=== PATIENT | male | born 1970 | race Caucasian/White ===

== ENCOUNTER 2016-10-26 18:58 | Emergency (ER) | payer OTHER ==
[~2016-10-26 18:58] MED LIST: Sodium Chloride 0.9% 1,000 ML BAG ONE; Sodium Chloride 0.9% 100 ML BAG ONE
[2016-10-26 19:47] LABS: Bilirubin Negative (Negative); Blood, Urine Trace (Negative); Clarity Clear (Clear); Glucose, Urine (Dipstick) Negative (Negative); Leukocyte Negative (Negative); Nitrite Negative (Negative); Protein, Urine (Dipstick) Negative (Neg-Trace); Specific Gravity, Urine 1.025 (1.005-1.030)
[2016-10-26 19:51] LABS: #Basophils 0.1 thou/uL (0.0-0.2); #Eosinphils 0.3 thou/uL (0.0-0.7); #Lymphocytes 1.5 thou/uL (1.20-3.40); #Monocytes 0.6 thou/uL (0.11-0.59); #Neutrophils 4.7 thou/uL (1.40-6.50); %Basophils 1.9 % (0.0-1.0); %Eosinophils 4.3 % (0.0-10.0); %Lymphocytes 20.4 % (21.0-51.0); %Monocytes 7.7 % (0.0-10.0); %Neutrophils 65.8 % (42.0-75.0); Mean Corpuscular HGB CONC 35.2 g/dL (32.0-36.0); Mean Corpuscular Volume 88.1 fl (80.0-94.0); Mean Platelet Volume 7.4 fL (7.4-10.4); Platelet Count 231 thou/uL (130-400); RBC Distribution Width 11.5 % (11.5-14.5); Red Blood Cell (RBC) Count 4.18 mill/uL (4.70-6.10); White Blood Cell (WBC) Count 7.2 thou/uL (4.8-10.8)
[2016-10-26 19:58] LABS: ALT (SGPT) 21 U/L (0-55); AST (SGOT) 21 U/L (5-34); Albumin 4.1 g/dL (3.5-5.0); Alkaline Phosphatase 55 U/L (40-150); Amylase 49 U/L (25-125); Anion Gap 17 mmol/L (10-20); BUN (Urea Nitrogen) 19 mg/dL (8.9-20.6); Bilirubin, Total Less than 0.3 mg/dL (0.2-1.2); Calc. Creatinine Clearance 0 mL/min (70-130); Calcium 9.4 mg/dL (7.8-10.44); Carbon Dioxide 23 mmol/L (22-29); Chloride 104 mmol/L (98-107); Estimated GFR-MDRD 69; Globulin 2.6 g/dL (2.4-3.5); Glucose 111 mg/dL (70-105); Lipase 73 U/L (8-78); Potassium 4.1 mmol/L (3.5-5.1); Protein, Total 6.7 g/dL (6.0-8.3); Sodium 140 mmol/L (136-145)
[2016-10-26 20:00] LABS: Bacteria/HPF Rare-Few HPF (None Seen); Squamous Epithelial 0-3 HPF (0-3); WBC/HPF None Seen HPF (0-3)
--- NOTE | 2016-10-26 20:15 | RAD ---
PORTABLE CHEST 10/26/16 PROVIDED CLINICAL HISTORY: Chest pain. FINDINGS: No evidence for an acute cardiopulmonary process. IMPRESSION: As above. POS: [facility]OL[facility]
[2016-10-26] MEDS ORDERED: Ketorolac Tromethamine 30 MG/ML VIAL ONE (20:38)
[2016-10-26] MEDS ORDERED: Ondansetron HCl/PF 4 MG/2 ML Vial ONE (20:38)
--- NOTE | 2016-10-26 21:11 | ERRECORD ---
[facility] EMERGENCY RECORD HPI ABDOMINAL PAIN (20:21 LLDO) CHIEF COMPLAINT: Patient presents for evaluation of abdominal pain, Patient presents for evaluation of abdominal distention, Patient presents for evaluation of abdominal bloating, Patient presents for evaluation of see triage note. RUQpain for 4 days. worse today. nausea all day. bloating and burping. never had any surgery in [place]. HISTORIAN: History provided by patient. LOCATION MALE: Symptoms are localized, most severe in the right upper quadrant. QUALITY: Pain is dull in nature, described as aching, described as bloating sensation, described as cramping, described as a sensation of fullness, described as BECOMES SHARP WITH MOVEMENT OR PALPATION. SEVERITY: Maximum severity of symptoms moderate, Currently symptoms are moderate. TIME COURSE: Sudden onset of symptoms, Symptoms are worsening, waxes and wanes but never goes away. ASSOCIATED WITH: Associated with loss of appetite, Associated with nausea. RELIEVED BY: Patient's condition relieved by nothing. EXACERBATED BY: Patient's condition exacerbated by food, Patient's condition exacerbated by movement, Patient's condition exacerbated by walking. RISK FACTORS MALE: Testicular torsion risk factors, not applicable for this patient, Abdominal aortic aneurysm risk factors, include age over 40 years, Coronary artery disease risk factors, include hypertension. ROS CONSTITUTIONAL: Historian reports fatigue. (20:27 LLDO) EYES: Negative eye review of systems, Historian denies eye pain, denies eye redness, denies eye discharge. (20:30 LLDO) ENT: Negative ears, nose, throat review of systems, Historian denies otalgia, denies rhinorrhea, denies sinus pain, denies sore throat. (20:30 LLDO) CARDIOVASCULAR: Negative cardiovascular review of systems, Historian denies chest pain, no radiation, Historian denies diaphoresis, denies paroxysmal nocturnal dyspnea, denies syncope. (20:30 LLDO) RESPIRATORY: Negative respiratory review of systems, Historian denies cough, denies shortness of breath, denies sputum. (20:30 LLDO) GI: Historian reports abdominal pain, reports anorexia, reports appetite changes, reports flatulence, denies hematochezia, denies melena, reports nausea, denies stool changes, denies vomiting. (20:27 LLDO) MUSCULOSKELETAL: Negative musculoskeletal review of systems, Historian denies arthralgias, denies fall, denies injury, denies myalgias. (20:30 LLDO) NEUROLOGIC: Negative neurologic review of systems, Historian &a-1R&a+25V*p+0X*[id number]*c202B*c15G*c2P*p-0X&a-25V&a+1R Name: Ed Hernandez : 1970 M46 MedRec: [id number] AcctNum: [id number] Prepared: SunOct 27, 2016 02:06 by Interface Page 1 of 4 pMD [facility] EMERGENCY RECORD denies confusion, denies focal weakness, denies mental status changes, denies sensory changes. (20:30 LLDO) HEMO/LYMPHATIC: Normal hematologic/lymphatic system review, Historian denies abnormal blood clotting, denies gum bleeding, denies petechiae. (20:30 LLDO) ALLERGIC/IMMUNOLOGIC: Normal allergy/immunologic system review, Historian denies eczema, denies environmental allergies, denies food allergies. (20:30 LLDO) PSYCHIATRIC: Negative psychiatric review of systems, Historian denies alcohol abuse, denies anxiety, denies depression, denies drug abuse, denies hallucinations. (20:30 LLDO) NOTES: All systems reviewed, negative except as described above. (20:27 LLDO) PAST MEDICAL HISTORY MEDICAL HISTORY: Notes: PRE HYPERTENSION, HAS NOT FOLLOWED UP WITH A PCP. (19:17 BPHI) MALE SURGICAL HISTORY: LEFT KNEE MENISCUS REPAIR. (19:17 BPHI) PSYCHIATRIC HISTORY: No previous psychiatric history. (19:17 BPHI) SOCIAL HISTORY: Patient denies alcohol use, Patient denies drug use, Patient is a former tobacco user, Tobacco history notes: QUIT 1 MONTH AGO. (19:17 BPHI) NOTES: Nursing records reviewed, Agree with nursing records, Medication list reviewed. (20:30 LLDO) KNOWN ALLERGIES NKDA CURRENT MEDICATIONS (19:33 CJEF) None VITAL SIGNS VITAL SIGNS: BP: 143/89 (Right Arm), Pulse: 82 (Regular), Resp: 18 (Non-Labored), Temp: 98.4 (Tympanic), Pain: 6, O2 sat: 98 on Room Air, Time: 10/26/2016 19:14. (19:14 BPHI) BP: 106/72, Pulse: 67, Resp: 18, Pain: 6, O2 sat: 97 on Room Air, Time: 10/26/2016 20:15. (20:15 CJEF) BP: 120/72, Pulse: 62, Resp: 18, Temp: 97.1 (Tympanic), Pain: 6, O2 sat: 100 on Room Air, Time: 10/26/2016 21:21. (21:21 CJEF) BP: 120/72, Pulse: 62, Resp: 18, Temp: 98.4, Pain: T, O2 sat: 98 on RA, Time: 10/26/2016 21:35. 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 (20:28 LLDO) HEAD: Head exam normal, Head exam included findings of head atraumatic, normocephalic. (20:30 LLDO) EYES: Eye exam normal, Eye exam included findings of eyelids normal to inspection, Pupils equally round and reactive to light, Extraocular muscles intact. (20:30 LLDO) ENT: ENT exam normal, Ear exam normal, Nose exam normal. (20:30 LLDO) NECK: Neck exam normal, Neck exam included findings of normal range of motion, Trachea midline, no meningeal signs, no tenderness. (20:30 LLDO) RESPIRATORY CHEST: Respiratory and chest exam normal, Respiratory exam included findings of no respiratory distress, Breath sounds clear, Chest exam included findings of chest movement symmetrical, Chest expansion equal. (20:30 LLDO) CARDIOVASCULAR: Cardiovascular assessment normal, Cardiovascular exam included findings of heart rate regular rate and rhythm, Heart sounds normal. (20:30 LLDO) ABDOMEN MALE: Abdominal exam included findings of abdomen tender, to the right upper quadrant, severe intensity, Bowel sounds, hyperactive, Liver normal, Spleen normal, Distension present, no mass, no pulsatile masses, McBurney's point non-tender, no peritoneal signs, Trejo's sign present. (20:28 LLDO) BACK: Back exam normal, Back exam included findings of normal inspection, range of motion normal. (20:30 LLDO) UPPER EXTREMITY: Upper extremity exam normal, Upper extremity exam included findings of inspection normal, Range of motion normal. (20:30 LLDO) LOWER EXTREMITY: Lower extremity exam normal, Lower extremity exam included findings of inspection normal, Range of motion normal. (20:30 LLDO) NEURO: Neuro exam normal, Neuro exam findings include patient oriented to person, place and time, Speech normal, [place] coma scale 15. (20:30 LLDO) SKIN: Skin exam normal, Skin exam included findings of skin warm, dry, and normal in color, no rash. (20:30 LLDO) PSYCHIATRIC: Psychiatric exam normal, Psychiatric exam included findings of patient oriented to person place and time, Normal affect, Judgment normal. (20:30 LLDO) MEDICATION ADMINISTRATION SUMMARY Drug Name: Ancef intravenous, Dose Ordered: 2 g, Route: IV Piggy Back, Status: Given, Time: 21:12 10/26/2016, Drug Name: *sodium chloride 0.9 % intravenous, Dose Ordered: 1 L, Route: IV Fluid Infusion, Status: Given, Time: 21:12 10/26/2016, Drug Name: Zofran intravenous, Dose Ordered: 8 mg, Route: IV Push, Status: Given, Time: 20:46 10/26/2016, Drug Name: Toradol injection, Dose Ordered: 30 mg, Route: IV Push, &a-1R&a+25V*p+0X*u0031J*c202B*c15G*c2P*p-0X&a-25V&a+1R Name: Ed Hernandez : 1970 M46 MedRec: [id number] AcctNum: [id number] Prepared: SunOct 27, 2016 02:06 by Interface Page 3 of 4 pMD [facility] EMERGENCY RECORD Status: Given, Time: 20:45 10/26/2016, Drug Name: *sodium chloride 0.9 % intravenous, Dose Ordered: 1 L, Route: IV Fluid Infusion, Status: Given, Time: 20:45 10/26/2016, *Additional information available in notes, Detailed record available in Medication Service section. DOCTOR NOTES TEXT: accepted by dr. pereira for [facility]. (20:57 LLDO) sending to [facility] for GB US and possible surgical consult. (20:59 LLDO) PROBLEM LIST No recorded problems DIAGNOSIS (20:59 LLDO) FINAL: PRIMARY: ACUTE CHOLECYSTITIS. PRESCRIPTION No recorded prescriptions DISPOSITION PATIENT: Disposition Type: Transfer, Disposition: Transfer to [facility]. (20:59 LLDO) Patient left the department. (21:36 CJEF) Chapa: CAROLINE=ADDISON Vazquez, Matt BPHI=ADDISON Martínez, Janet CJEF=ADDISON Morales, Shannon LLDO=MD Rommel, Talon &a-1R&a+25V*p+0X*[id number]*c202B*c15G*c2P*p-0X&a-25V&a+1R Name: Ed Hernandez : 1970 M46 MedRec: [id number] AcctNum: [id number] Prepared: SunOct 27, 2016 02:06 by Interface Page 4 of 4 pMD MTDD
[2016-10-26] MEDS ORDERED: ceFAZolin Sodium 1 GM VIAL ONE (21:12)
--- NOTE | 2016-10-26 21:17 | PICIS ---
[facility] EMERGENCY RECORD COMMUNICATIONS (20:56 AWAT) COMMUNICATIONS: Notes: DR PEREIRA AT [facility] ER ACCEPTS PT FOR TRANSFER AT THIS TIME. TRIAGE (19:15 BPHI) TRIAGE NOTES: C/O RUQ PAIN THAT HAS BEEN GOING ON FOR 4 DAYS. BECOMING WORSE OVER THE PAST 2 DAYS. DESCRIBES SHARP "LIK A KNIFE" DENIES ANY KNOWN TRIGGERS. (19:15 BPHI) PATIENT: NAME: Ed Hernandez, AGE: 46, GENDER: male, : Sun1970, TIME OF GREET: SunOct 26, 2016 18:59, PREFERRED LANGUAGE: Estonian, ETHNICITY: Not or , ECODE BILLING MAP: [facility], SSN: [id number], Zip Code: [address], KG WEIGHT: 94.35, PHONE: , , , PERSON ID: [id number], PCP: NONE. (19:15 BPHI) COMPLAINT: PAIN/STOMACH AREA. (19:15 BPHI) ADMISSION: URGENCY: 3 Urgent, ADMISSION SOURCE: Home, TRANSPORT: CAR, BED: ED -04. (19:15 BPHI) ASSESSMENT: Assessment: RIGHT UPPER QUADRANT PAIN, Symptoms began 4 DAYS AGO, Symptoms began 4 days ago. (19:16 BPHI) PAIN: Patient complains of pain described as, on a scale 0-10 patient rates pain as 6, Location RUQ, Pain is intermittent, Onset was 4 DAYS AGO. (19:16 BPHI) SIRS SCORING: Heart Rate 55-109 (0), Temp range 96.8-101.1 (0), respiratory rate 12-24 (0), Mental Status altered: no (0). (19:16 BPHI) TRIAGE SCREENING: Patient denies suicidal ideation, Patient denies presence of domestic violence. (19:16 BPHI) PROVIDERS: TRIAGE NURSE: Janet Martínez RN. (19:15 BPHI) VITAL SIGNS: BP 143/89, (Right Arm), Pulse 82, (Regular), Resp 18, (Non-Labored), Temp 98.4, (Tympanic), Pain 6, O2 Sat 98, on Room Air, Time 10/26/2016 19:14. (19:14 BPHI) KNOWN ALLERGIES NKDA CURRENT MEDICATIONS (19:33 CJEF) None VITAL SIGNS VITAL SIGNS: BP: 143/89 (Right Arm), Pulse: 82 (Regular), Resp: 18 (Non-Labored), Temp: 98.4 (Tympanic), Pain: 6, O2 sat: 98 on Room Air, Time: 10/26/2016 19:14. (19:14 BPHI) BP: 106/72, Pulse: 67, Resp: 18, Pain: 6, O2 sat: 97 on Room Air, Time: 10/26/2016 20:15. (20:15 CJEF) BP: 120/72, Pulse: 62, Resp: 18, Temp: 97.1 (Tympanic), Pain: 6, O2 sat: 100 on Room Air, Time: 10/26/2016 21:21. (21:21 CJEF) BP: 120/72, Pulse: 62, Resp: 18, Temp: 98.4, Pain: T, O2 sat: 98 on RA, Time: 10/26/2016 21:35. (21:35 AWAT) &a-1R&a+25V*p+0X*z1010K*c202B*c15G*c2P*p-0X&a-25V&a+1R Name: Ed Hernandez : 1970 M46 MedRec: [id number] AcctNum: [id number] Prepared: SunOct 27, 2016 02:06 by Interface Page 1 of 13 pMD [facility] EMERGENCY RECORD NURSING ASSESSMENT: ABDOMEN (19:18 BPHI) CONSTITUTIONAL: Patient arrives ambulatory, Gait steady, History obtained from patient, Patient appears, uncomfortable, Patient cooperative, Patient alert, Oriented to person, place and time, Skin warm, Skin dry, Skin normal in color, Mucous membranes pink, Mucous membranes moist, Patient is well-groomed, Patient complains of RIGHT UPPER QUADRANT PAIN, C/O RUQ PAIN THAT HAS BEEN GOING ON FOR 4 DAYS. BECOMING WORSE OVER THE PAST 2 DAYS. DESCRIBES SHARP "LIKE A KNIFE" DENIES ANY KNOWN TRIGGERS., PAIN IS INTERMITTENT. PAIN: sharp pain, to the right upper quadrant, Onset of pain 4 DAYS AGO, on a scale 0-10 patient rates pain as 6. NONVERBAL PAIN: Non-Verbal complaints present with movement (1), Facial grimaces present with movement (1). ABDOMEN: Abdomen assessment findings include abdomen symmetrical, Abdomen soft, tender, to the right upper quadrant, Notes: DENIES ANY ABNORMAL BOWEL MOVEMENTS. GENITOURINARY MALE: no associated urinary complaints. NURSING ASSESSMENT: FALL RISK (19:33 CJEF) FALL RISK: Total score 0, No risk for fall. HENDRICH II FALL RISK: Able to rise in a single movement; no loss of balance with steps(0), Total score 0, Score less than 5. Patient not high risk for falls. NURSING ASSESSMENT: SKIN (19:33 CJEF) SKIN: Skin assessment findings include skin warm, Skin dry, Skin normal in color. GERARDO SCALE: (4) Sensory perception has no impairment, (4) Skin is rarely moist, (4) Patient walks frequently, (4) No mobility limitations, (3) Adequate nutrition, (3) Patient has no apparent problem moving, Gerardo Risk Total: 22. NOTES: Patient tolerated procedure well. SAFETY: Side rails up, Cart/Stretcher in lowest position, Family at bedside, Call light within reach, Hospital ID band on. NURSING PROCEDURE: BEDSIDE RADIOLOGY (19:32 CJEF) PATIENT IDENTIFIER: Patient actively involved in identification process, Patient's identity verified by patient stating name, Patient's identity verified by patient stating date. BEDSIDE RADIOLOGY: Portable chest x-ray performed. NOTES: Patient tolerated procedure well. SAFETY: Side rails up, Cart/Stretcher in lowest position, Family at bedside, Call light within reach, Hospital ID band on. NURSING PROCEDURE: BEDSIDE SIRS TESTING (21:05 CJEF) SCORES: Heart Rate 55-109 (0), Temp range 96.8-101.1 (0), respiratory rate 12-24 (0), Latest WBC 3-14.9 (0), Mental Status &a-1R&a+25V*p+0X*l7954Y*c202B*c15G*c2P*p-0X&a-25V&a+1R Name: Ed Hernandez : 1970 M46 MedRec: [id number] AcctNum: [id number] Prepared: SunOct 27, 2016 02:06 by Interface Page 2 of 13 pMD [facility] EMERGENCY RECORD altered: no (0), Yes, Infection or Suspected Infection. SIRS: Yes, Infection or Suspected Infection. NURSING PROCEDURE: CLAIMS REPRESENTATIVE (20:15 CJEF) PATIENT IDENTIFIER: Patient actively involved in identification process, Patient's identity verified by patient stating name, Patient's identity verified by patient stating date. CLAIMS REPRESENTATIVE: Patient placed on non-invasive blood pressure monitor, Patient placed on continuous pulse oximetry, Adult/pediatric oxisensor applied. FOLLOW-UP: After procedure, alarms set and on, After procedure, patient tolerating monitoring. NOTES: Patient tolerated procedure well. SAFETY: Side rails up, Cart/Stretcher in lowest position, Family at bedside, Call light within reach, Hospital ID band on. NURSING PROCEDURE: IV (19:28 CJEF) PATIENT IDENITIFIER: Patient actively involved in identification process, Patient's identity verified by patient stating name, Patient's identity verified by patient stating date. IV SITE 1: IV therapy indicated for hydration, IV therapy indicated for medication administration, IV established, to the left hand, using an 18 gauge catheter, in one attempt, IV site prepped with CHLORAPREP, Saline lock established, Flushed with normal saline (mls): 10, Labs drawn at time of placement, labeled in the presence of the patient and sent to lab. FOLLOW-UP SITE 1: After procedure, sterile transparent dressing applied. NOTES: Patient tolerated procedure well. SAFETY: Side rails up, Cart/Stretcher in lowest position, Family at bedside, Call light within reach, Hospital ID band on. NURSING PROCEDURE: NURSE NOTES NURSES NOTES: Notes: PT PROVIDED URINAL FOR URINE SAMPLE. (19:23 CJEF) Patient in no apparent distress, Patient resting quietly, Notes: PT RESTING IN BED QUIETLY WITH NO DISTRESS NOTED. PT DENIES ANY NEEDS. (20:04 CJEF) Patient in no apparent distress, Patient resting quietly, Notes: PT RESTING IN BED QUIETLY. NO DISTRESS NOTED. (19:36 CJEF) Notes: EMS AT BEDSIDE FOR REPORT. (21:30 CJEF) Notes: EMS WITH PT OUT OF DOOR FOR TRANSFER. (21:35 CJEF) NURSING PROCEDURE: TRANSFER (21:35 AWAT) TRANSFER: Reason for transfer need for specialized care, Diagnosis: POSSIBLE CHOLECYSTITIS- NEEDS US, Accepting institution: [facility] ER, Accepting physician: DR PEREIRA, Referring physician: DR CARNEY, Transported by urgent ambulance, accompanied by emergency medical services personnel, Report called to receiving facility, MASON RN, Provided opportunity to answer questions, Summary of Care &a-1R&a+25V*p+0X*v5401O*c202B*c15G*c2P*p-0X&a-25V&a+1R Name: Ed Hernandez : 1970 6 MedRec: [id number] AcctNum: [id number] Prepared: SunOct 27, 2016 02:06 by Interface Page 3 of 13 pMD [facility] EMERGENCY RECORD printed, Copy of patient record prepared for receiving facility, Status of patient's valuables documented on chart, Medication reconciliation form prepared and sent to receiving facility, Patient consent for transfer signed, Patient given appropriate sedation for safe transport, Notes: PT CALLED [facility] TO NOTIFY THEM OF THE PLAN TO TRANSFER. BELONGINGS: Belongings remain with patient, Valuables remain with patient. EQUIPMENT WITH PATIENT: Equipment with patient at time of transfer patient monitor, Equipment with patient at time of transfer IV pump. NOTES: Patient tolerated procedure well. SAFETY: Side rails up, Cart/Stretcher in lowest position, Call light within reach, Hospital ID band on, Physician notified of above findings. VITAL SIGNS: BP: 120, / 72, Pulse: 62, Resp: 18, Temp: 98.4, Pain: T, O2 sat: 98, on: RA, Time: 2135. NURSING PROCEDURE: URINE COLLECTION (19:25 [facility]) PATIENT IDENTIFIER: Patient actively involved in identification process, Patient's identity verified by patient stating name, Patient's identity verified by patient stating date. URINE COLLECTION MALE: Urine collected by void, urine yellow in color. NOTES: Patient tolerated procedure well. SAFETY: Side rails up, Cart/Stretcher in lowest position, Family at bedside, Call light within reach, Hospital ID band on. ORDER DETAILS Order Name: Amylase, Status: Active, Time: 19:19 10/26/2016, User: ALEX, - Ordered for: MD Carney Lloyd, - Entered by: MD Carney Lloyd - [facility] Oct 26, 2016 19:19, - Quantity: 1, Order Name: CBC with Differential, Status: Active, Time: 19:18 10/26/2016, User: ALEX, - Ordered for: MD Carney Lloyd, - Entered by: MD Carney Lloyd - [facility] Oct 26, 2016 19:18, - Quantity: 1, Order Name: Comprehensive Metabolic Panel, Status: Active, Time: 19:18 10/26/2016, User: ALEX, - Ordered for: MD Carney Lloyd, - Entered by: MD Carney Lloyd - [facility] Oct 26, 2016 19:18, - Quantity: 1, Order Name: Culture, Urine, Status: Active, Time: 19:18 10/26/2016, User: ALEX, - Ordered for: MD Carney Lloyd, - Entered by: MD Carney Lloyd - [facility] Oct 26, 2016 19:18, - Quantity: 1, &a-1R&a+25V*p+0X*w9296G*c202B*c15G*c2P*p-0X&a-25V&a+1R Name: HernandezEd : 1970 M46 MedRec: [id number] AcctNum: [id number] Prepared: SunOct 27, 2016 02:06 by Interface Page 4 of 13 [facility] EMERGENCY RECORD Order Name: Lipase, Status: Active, Time: 19:19 10/26/2016, User: ALEX, - Ordered for: MD Carney Lloyd, - Entered by: MD Carney Lloyd [facility] Oct 26, 2016 19:19, - Quantity: 1, Order Name: Test, Serum (BHCG), Status: Canceled, Time: 19:54 10/26/2016, User: System, - Ordered for: MD Carney Lloyd, - Entered by: MD Carney Lloyd - [facility] Oct 26, 2016 19:18, - Quantity: 1, Order Name: SALINE LOCK, Status: Done, Time: 19:34 10/26/2016, User: [facility], - Ordered for: MD Carney Lloyd, - Entered by: MD Carney Lloyd [facility] Oct 26, 2016 19:19, - Quantity: 1, Order Name: Urinalysis w/ Rflx Microscopic, Status: Active, Time: 19:18 10/26/2016, User: ALEX, - Ordered for: MD Carney Lloyd, - Entered by: MD Carney Lloyd [facility] Oct 26, 2016 19:18, - Quantity: 1, Order Name: XR Chest 1 View Portable, Status: Active, Time: 19:19 10/26/2016, User: ALEX, - Ordered for: MD Carney Lloyd, - Entered by: MD Carney Lloyd [facility] Oct 26, 2016 19:19, - Quantity: 1. MEDICATION ADMINISTRATION SUMMARY Drug Name: Ancef intravenous, Dose Ordered: 2 g, Route: IV Piggy Back, Status: Given, Time: 21:12 10/26/2016, Drug Name: *sodium chloride 0.9 % intravenous, Dose Ordered: 1 L, Route: IV Fluid Infusion, Status: Given, Time: 21:12 10/26/2016, Drug Name: Zofran intravenous, Dose Ordered: 8 mg, Route: IV Push, Status: Given, Time: 20:46 10/26/2016, Drug Name: Toradol injection, Dose Ordered: 30 mg, Route: IV Push, Status: Given, Time: 20:45 10/26/2016, Drug Name: *sodium chloride 0.9 % intravenous, Dose Ordered: 1 L, Route: IV Fluid Infusion, Status: Given, Time: 20:45 10/26/2016, *Additional information available in notes, Detailed record available in Medication Service section. MEDICATION SERVICE Ancef intravenous: Order: Ancef intravenous (cefazolin sodium) - Dose: 2 g : IV Piggy Back Schedule: Now Ordered by: Talon Carney MD Entered by: Talon Carney MD [facility] Oct 26, 2016 21:00 Documented as given by: Matt Vazquez, RN [facility] Oct 26, 2016 21:12 Patient, Medication, Dose, Route and Time verified prior to administration. &a-1R&a+25V*p+0X*j7256Z*c202B*c15G*c2P*p-0X&a-25V&a+1R Name: Ed Hernandez : 1970 6 MedRec: [id number] AcctNum: [id number] Prepared: SunOct 27, 2016 02:06 by Interface Page 5 of 13 pMD [facility] EMERGENCY RECORD Amount given: 2GM, IV SITE #1 IVPB or drip, initial infusion, IVPB mixed in: 100ml, Fluid: 0.9NS, via primary tubing, Catheter placement confirmed via flush prior to administration, IV site without signs or symptoms of infiltration during medication administration, No swelling during administration, No drainage during administration, IV flushed after administration, Correct patient, time, route, dose and medication confirmed prior to administration, Patient advised of actions and side-effects prior to administration, Allergies confirmed and medications reviewed prior to administration, Administered by HAILEY RN, Patient in position of comfort, Side rails up, Cart in lowest position. : Follow Up : Response assessment performed, No signs or symptoms of allergic reaction noted, _IV SITE #1:_, Medication infusion continued upon transfer from emergency department, on [place] Oct 26, 2016 21:35, 25 minutes, ., Total amount infused: 42ML, Advised not to ambulate without assistance, Patient in position of comfort, Side rails up, Cart in lowest position, Family at bedside. (21:35 [facility]) sodium chloride 0.9 % intravenous: Order: sodium chloride 0.9 % intravenous (0.9 % sodium chloride) - Dose: 1 L : IV Fluid Infusion Notes: (Bolus) after bolus, run NS at 150ml/h Ordered by: Talon Carney MD Entered by: Talon Carney MD [facility] Oct 26, 2016 20:35 Documented as given by: Shannon Morales RN [facility] Oct 26, 2016 20:45 Patient, Medication, Dose, Route and Time verified prior to administration. Amount given: 1 L, IV SITE #1 IV fluids established for hydration, IV SITE #1 into left hand, IV SITE #1 1st bag hung, IV SITE #1 bolus of 1000 ml established, via primary tubing, Awake and alert- acceptable, Connections checked prior to administration, Line traced prior to administration, Catheter placement confirmed via flush prior to administration, IV site without signs or symptoms of infiltration during medication administration, No swelling during administration, No drainage during administration, IV flushed after administration, Correct patient, time, route, dose and medication confirmed prior to administration, Patient advised of actions and side-effects prior to administration, Allergies confirmed and medications reviewed prior to administration, Patient tolerated procedure well, Patient in position of comfort, Side rails up, Cart in lowest position, Family at bedside. : Follow Up : _IV SITE #1:_, IV fluid infusion discontinued, on [place] Oct 26, 2016 21:12, 30 minutes, ., Total amount infused: 1 LITER, Advised not to ambulate without assistance, Patient in position of comfort, Side rails up, Cart in lowest position, Family at bedside. (21:12 [facility]) sodium chloride 0.9 % intravenous: Order: sodium chloride 0.9 % intravenous (0.9 % sodium chloride) - Dose: 1 L : IV Fluid Infusion Notes: after bolus, run NS at 150ml/h &a-1R&a+25V*p+0X*v1764Z*c202B*c15G*c2P*p-0X&a-25V&a+1R Name: Ed Hernandez : 1970 M46 MedRec: [id number] AcctNum: [id number] Prepared: SunOct 27, 2016 02:06 by Interface Page 6 of 13 [facility] EMERGENCY RECORD Written Order Ordered by: Talon Carney MD Entered by: Shannon Morales RN [facility] Oct 26, 2016 21:34 Documented as given by: Shannon Morales RN [facility] Oct 26, 2016 21:12 Patient, Medication, Dose, Route and Time verified prior to administration. Amount given: 150ML/HR, IV SITE #1 IV fluids established for hydration, IV SITE #1 into left hand, IV SITE #1 2nd bag hung, amount 1 Liter hung, IV SITE #1 After bolus completed rate changed to 125 ml/hr, via primary tubing, IV SITE #1 on IV pump, Awake and alert- acceptable, Connections checked prior to administration, Line traced prior to administration, Catheter placement confirmed via flush prior to administration, IV site without signs or symptoms of infiltration during medication administration, No swelling during administration, No drainage during administration, IV flushed after administration, Correct patient, time, route, dose and medication confirmed prior to administration, Patient advised of actions and side-effects prior to administration, Allergies confirmed and medications reviewed prior to administration, Patient tolerated procedure well, Patient in position of comfort, Side rails up, Cart in lowest position, Family at bedside. : Follow Up : Response assessment performed, No signs or symptoms of allergic reaction noted, _IV SITE #1:_, IV fluid infusion continued upon transfer from emergency department, on [place] Oct 26, 2016 21:35, 25 minutes, ., Total amount infused: 59ML, Advised not to ambulate without assistance, Patient in position of comfort, Side rails up, Cart in lowest position, Family at bedside. (21:35 [facility]) Toradol injection: Order: Toradol injection (ketorolac tromethamine) - Dose: 30 mg : IV Push Schedule: Now Ordered by: Talon Carney MD Entered by: Talon Carney MD [facility] Oct 26, 2016 20:33 Documented as given by: Shannon Morales RN [facility] Oct 26, 2016 20:45 Patient, Medication, Dose, Route and Time verified prior to administration. Amount given: 30MG, IV SITE #1 IVP, subsequent different medication, Slowly, Awake and alert- acceptable, Connections checked prior to administration, Line traced prior to administration, Catheter placement confirmed via flush prior to administration, IV site without signs or symptoms of infiltration during medication administration, No swelling during administration, No drainage during administration, IV flushed after administration, Correct patient, time, route, dose and medication confirmed prior to administration, Patient advised of actions and side-effects prior to administration, Allergies confirmed and medications reviewed prior to administration, Patient tolerated procedure well, Patient in position of comfort, Side rails up, Cart in lowest position, Family at bedside. : Follow Up : Response assessment performed, No signs or symptoms of allergic reaction noted, Advised not to ambulate without &a-1R&a+25V*p+0X*u1362K*c202B*c15G*c2P*p-0X&a-25V&a+1R Name: Ed Hernandez : 1970 M46 MedRec: [id number] AcctNum: [id number] Prepared: SunOct 27, 2016 02:06 by Interface Page 7 of 13 pMD [facility] EMERGENCY RECORD assistance, Patient in position of comfort, Side rails up, Cart in lowest position, Family at bedside. (21:31 [facility]) Zofran intravenous: Order: Zofran intravenous (ondansetron HCl) - Dose: 8 mg : IV Push Schedule: Now Ordered by: Talon Carney MD Entered by: Talon Carney MD [facility] Oct 26, 2016 20:33 Documented as given by: Shannon Morales RN [facility] Oct 26, 2016 20:46 Patient, Medication, Dose, Route and Time verified prior to administration. Amount given: 8MG, IV SITE #1 IVP, subsequent different medication, Slowly, Awake and alert- acceptable, Connections checked prior to administration, Line traced prior to administration, Catheter placement confirmed via flush prior to administration, IV site without signs or symptoms of infiltration during medication administration, No swelling during administration, No drainage during administration, IV flushed after administration, Correct patient, time, route, dose and medication confirmed prior to administration, Patient advised of actions and side-effects prior to administration, Allergies confirmed and medications reviewed prior to administration, Patient tolerated procedure well, Patient in position of comfort, Side rails up, Cart in lowest position, Family at bedside. : Follow Up : Response assessment performed, No signs or symptoms of allergic reaction noted, Advised not to ambulate without assistance, Patient in position of comfort, Side rails up, Cart in lowest position, Family at bedside. (21:30 CJEF) HPI ABDOMINAL PAIN (20:21 LLDO) CHIEF COMPLAINT: Patient presents for evaluation of abdominal pain, Patient presents for evaluation of abdominal distention, Patient presents for evaluation of abdominal bloating, Patient presents for evaluation of see triage note. RUQpain for 4 days. worse today. nausea all day. bloating and burping. never had any surgery in [place]. HISTORIAN: History provided by patient. LOCATION MALE: Symptoms are localized, most severe in the right upper quadrant. QUALITY: Pain is dull in nature, described as aching, described as bloating sensation, described as cramping, described as a sensation of fullness, described as BECOMES SHARP WITH MOVEMENT OR PALPATION. SEVERITY: Maximum severity of symptoms moderate, Currently symptoms are moderate. TIME COURSE: Sudden onset of symptoms, Symptoms are worsening, waxes and wanes but never goes away. ASSOCIATED WITH: Associated with loss of appetite, Associated with nausea. RELIEVED BY: Patient's condition relieved by nothing. EXACERBATED BY: Patient's condition exacerbated by food, Patient's condition exacerbated by movement, Patient's condition exacerbated by walking. &a-1R&a+25V*p+0X*f2689S*c202B*c15G*c2P*p-0X&a-25V&a+1R Name: Ed Hernandez : 1970 M46 MedRec: [id number] AcctNum: [id number] Prepared: SunOct 27, 2016 02:06 by Interface Page 8 of 13 pMD [facility] EMERGENCY RECORD RISK FACTORS MALE: Testicular torsion risk factors, not applicable for this patient, Abdominal aortic aneurysm risk factors, include age over 40 years, Coronary artery disease risk factors, include hypertension. ROS CONSTITUTIONAL: Historian reports fatigue. (20:27 LLDO) EYES: Negative eye review of systems, Historian denies eye pain, denies eye redness, denies eye discharge. (20:30 LLDO) ENT: Negative ears, nose, throat review of systems, Historian denies otalgia, denies rhinorrhea, denies sinus pain, denies sore throat. (20:30 LLDO) CARDIOVASCULAR: Negative cardiovascular review of systems, Historian denies chest pain, no radiation, Historian denies diaphoresis, denies paroxysmal nocturnal dyspnea, denies syncope. (20:30 LLDO) RESPIRATORY: Negative respiratory review of systems, Historian denies cough, denies shortness of breath, denies sputum. (20:30 LLDO) GI: Historian reports abdominal pain, reports anorexia, reports appetite changes, reports flatulence, denies hematochezia, denies melena, reports nausea, denies stool changes, denies vomiting. (20:27 LLDO) MUSCULOSKELETAL: Negative musculoskeletal review of systems, Historian denies arthralgias, denies fall, denies injury, denies myalgias. (20:30 LLDO) NEUROLOGIC: Negative neurologic review of systems, Historian denies confusion, denies focal weakness, denies mental status changes, denies sensory changes. (20:30 LLDO) HEMO/LYMPHATIC: Normal hematologic/lymphatic system review, Historian denies abnormal blood clotting, denies gum bleeding, denies petechiae. (20:30 LLDO) ALLERGIC/IMMUNOLOGIC: Normal allergy/immunologic system review, Historian denies eczema, denies environmental allergies, denies food allergies. (20:30 LLDO) PSYCHIATRIC: Negative psychiatric review of systems, Historian denies alcohol abuse, denies anxiety, denies depression, denies drug abuse, denies hallucinations. (20:30 LLDO) NOTES: All systems reviewed, negative except as described above. (20:27 LLDO) PAST MEDICAL HISTORY MEDICAL HISTORY: Notes: PRE HYPERTENSION, HAS NOT FOLLOWED UP WITH A PCP. (19:17 BPHI) MALE SURGICAL HISTORY: LEFT KNEE MENISCUS REPAIR. (19:17 BPHI) PSYCHIATRIC HISTORY: No previous psychiatric history. (19:17 BPHI) SOCIAL HISTORY: Patient denies alcohol use, Patient denies drug use, Patient is a former tobacco user, Tobacco history &a-1R&a+25V*p+0X*y6561I*c202B*c15G*c2P*p-0X&a-25V&a+1R Name: Ed Hernandez : 1970 M46 MedRec: [id number] AcctNum: [id number] Prepared: SunOct 27, 2016 02:06 by Interface Page 9 of 13 [facility] EMERGENCY RECORD notes: QUIT 1 MONTH AGO. (19:17 BPHI) NOTES: Nursing records reviewed, Agree with nursing records, Medication list reviewed. 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 (20:28 LLDO) HEAD: Head exam normal, Head exam included findings of head atraumatic, normocephalic. (20:30 LLDO) EYES: Eye exam normal, Eye exam included findings of eyelids normal to inspection, Pupils equally round and reactive to light, Extraocular muscles intact. (20:30 LLDO) ENT: ENT exam normal, Ear exam normal, Nose exam normal. (20:30 LLDO) NECK: Neck exam normal, Neck exam included findings of normal range of motion, Trachea midline, no meningeal signs, no tenderness. (20:30 LLDO) RESPIRATORY CHEST: Respiratory and chest exam normal, Respiratory exam included findings of no respiratory distress, Breath sounds clear, Chest exam included findings of chest movement symmetrical, Chest expansion equal. (20:30 LLDO) CARDIOVASCULAR: Cardiovascular assessment normal, Cardiovascular exam included findings of heart rate regular rate and rhythm, Heart sounds normal. (20:30 LLDO) ABDOMEN MALE: Abdominal exam included findings of abdomen tender, to the right upper quadrant, severe intensity, Bowel sounds, hyperactive, Liver normal, Spleen normal, Distension present, no mass, no pulsatile masses, McBurney's point non-tender, no peritoneal signs, Trejo's sign present. (20:28 LLDO) BACK: Back exam normal, Back exam included findings of normal inspection, range of motion normal. (20:30 LLDO) UPPER EXTREMITY: Upper extremity exam normal, Upper extremity exam included findings of inspection normal, Range of motion normal. (20:30 LLDO) LOWER EXTREMITY: Lower extremity exam normal, Lower extremity exam included findings of inspection normal, Range of motion normal. (20:30 LLDO) NEURO: Neuro exam normal, Neuro exam findings include patient oriented to person, place and time, Speech normal, Gustavo coma scale 15. (20:30 LLDO) SKIN: Skin exam normal, Skin exam included findings of skin warm, dry, and normal in color, no rash. (20:30 LLDO) PSYCHIATRIC: Psychiatric exam normal, Psychiatric exam included findings of patient oriented to person place and time, Normal affect, Judgment normal. (20:30 LLDO) &a-1R&a+25V*p+0X*o2159H*c202B*c15G*c2P*p-0X&a-25V&a+1R Name: Ed Hernandez : 1970 M46 MedRec: [id number] AcctNum: [id number] Prepared: SunOct 27, 2016 02:06 by Interface Page 10 of 13 [facility] EVENTS TRANSFER: Triage to Emergency Main ED -04. (Aubree Oct 26, 2016 19:15 BPHI) Removed from Emergency Main ED -04. (21:36 [facility]) DOCTOR NOTES TEXT: accepted by dr. pereira for [facility]. (20:57 LLDO) sending to [facility] for GB US and possible surgical consult. (20:59 LLDO) PROBLEM LIST No recorded problems DIAGNOSIS (20:59 LLDO) FINAL: PRIMARY: ACUTE CHOLECYSTITIS. DISPOSITION PATIENT: Disposition Type: Transfer, Disposition: Transfer to [facility]. (20:59 LLDO) Patient left the department. (21:36 CJEF) PRESCRIPTION No recorded prescriptions IMAGING CONSENTS: Image captured from scanner. (21:08 AWAT) *MEMORANDUM OF TRANSFER: Image captured from scanner. (21:08 AWAT) EMS TRANSPORT ORDERS: Image captured from scanner. (21:08 AWAT) SBARU: Image captured from scanner. (21:29 AWAT) *SUPPLY CHARGE SHEET: Image captured from scanner. (21:37 AWAT) TRANSFER WORKSHEET: Image captured from scanner. (21:38 AWAT) Page 2 added. Image captured from scanner. (21:38 AWAT) ADMIN DIGITAL SIGNATURE: MD Carney Lloyd. (21:01 LLDO) MD Carney Lloyd. (SunOct 27, 2016 02:01 LLDO) RESULTS RADIOLOGY: XR Chest 1 View Portable Observe DT: SunOct 26, 2016 19:21, CXRP PORTABLE CHEST 10/26/16 PROVIDED CLINICAL HISTORY: Chest pain. FINDINGS: &a-1R&a+25V*p+0X*e8316L*c202B*c15G*c2P*p-0X&a-25V&a+1R Name: Ed Hernandez : 1970 M46 MedRec: [id number] AcctNum: [id number] Prepared: SunOct 27, 2016 02:06 by Interface Page 11 of 13 [facility] RECORD No evidence for an acute cardiopulmonary process. IMPRESSION: As above. POS: [facility] . (20:37 CJEF) LABORATORY: Urine Microscopic Collection DT: SunOct 26, 2016 19:41, See comment below , Comment please do micro , RBC/HPF 4-6 HPF, Range (0-3), WBC/HPF None Seen HPF, Range (0-3), Squamous Epithelial 0-3 HPF, Range (0-3), Bacteria/HPF Rare-Few HPF, Range (None Seen). (20:06 CJEF) Urinalysis w/ Rflx Microscopic Collection DT: SunOct 26, 2016 19:41, See comment below , Comment please do micro , Color Yellow , Range (Yellow), Clarity Clear , Range (Clear), Specific [place], Urine 1.025 , Range (1.005-1.030), pH, Urine 6.0 , Range (5.0-9.0), Leukocyte Negative , Range (Negative), Nitrite Negative , Range (Negative), Protein, Urine (Dipstick) Negative mg/dL, Range (Neg-Trace), Glucose, Urine (Dipstick) Negative mg/dL, Range (Negative), Ketone, Urine Negative mg/dL, Range (Negative), Urobilinogen 1.0 mg/dL, Range (0.2-1.0), Bilirubin Negative , Range (Negative), *Blood, Urine Trace - H , Range (Negative). (20:06 [facility]) Lipase Collection DT: SunOct 26, 2016 19:41, Lipase 73 U/L, Range (8-78). (20:06 [facility]) Amylase Collection DT: SunOct 26, 2016 19:41, Amylase 49 U/L, Range (25-125). (20:06 [facility]) Comprehensive Metabolic Panel Collection DT: SunOct 26, 2016 19:41, Sodium 140 mmol/L, Range (136-145), Potassium 4.1 mmol/L, Range (3.5-5.1), Chloride 104 mmol/L, Range (98-107), Carbon Dioxide 23 mmol/L, Range (22-29), Anion Gap 17 mmol/L, Range (10-20), BUN (Urea Nitrogen) 19 mg/dL, Range (8.9-20.6), Creatinine 1.14 mg/dL, Range (0.7-1.3), Estimated GFR-MDRD 69 , Reference Range for Estimated GFR: Greater than 90, mL/min/1.73 m2 NOTE: The MDRD equation has not been validated for use, with the elderly (over 70 years of age), women, patients with, serious comorbid condition or persons with extremes of body size, muscle, mass, or nutritional status. , *Glucose 111 - H mg/dL, Range (70-105), Calcium 9.4 mg/dL, Range (7.8-10.44), &a-1R&a+25V*p+0X*s9668X*c202B*c15G*c2P*p-0X&a-25V&a+1R Name: Ed Hernandez : 1970 M46 MedRec: [id number] AcctNum: [id number] Prepared: SunOct 27, 2016 02:06 by Interface Page 12 of 13 pMD [facility] EMERGENCY RECORD Bilirubin, Total Less than 0.3 mg/dL, Range (0.2-1.2), Protein, Total 6.7 g/dL, Range (6.0-8.3), NOTE: Plasma values are generally 0.3 to 0.5 g/dL higher than serum values, due to the presence of fibrinogen. , Albumin 4.1 g/dL, Range (3.5-5.0), Globulin 2.6 g/dL, Range (2.4-3.5), Alb/Glob Ratio 1.6 g/dL, Range (1.2-2.2), Alkaline Phosphatase 55 U/L, Range (40-150), AST (SGOT) 21 U/L, Range (5-34), ALT (SGPT) 21 U/L, Range (0-55). (20:06 [facility]) CBC with Differential Collection DT: SunOct 26, 2016 19:41, White Blood Cell (WBC) Count 7.2 thou/uL, Range (4.8-10.8), *Red Blood Cell (RBC) Count 4.18 - L mill/uL, Range (4.70-6.10), *Hemoglobin 13.0 - L g/dL, Range (14.0-18.0), *Hematocrit 36.8 - L %, Range (42.0-52.0), Mean Corpuscular Volume 88.1 fl, Range (80.0-94.0), Mean Corpuscular Hemoglobin 31.0 pg, Range (27.0-31.0), Mean Corpuscular HGB CONC 35.2 g/dL, Range (32.0-36.0), RBC Distribution Width 11.5 %, Range (11.5-14.5), Platelet Count 231 thou/uL, Range (130-400), Mean Platelet Volume 7.4 fL, Range (7.4-10.4), %Neutrophils 65.8 %, Range (42.0-75.0), *%Lymphocytes 20.4 - L %, Range (21.0-51.0), %Monocytes 7.7 %, Range (0.0-10.0), %Eosinophils 4.3 %, Range (0.0-10.0), *%Basophils 1.9 - H %, Range (0.0-1.0), #Neutrophils 4.7 thou/uL, Range (1.40-6.50), #Lymphocytes 1.5 thou/uL, Range (1.20-3.40), *#Monocytes 0.6 - H thou/uL, Range (0.11-0.59), #Eosinphils 0.3 thou/uL, Range (0.0-0.7), #Basophils 0.1 thou/uL, Range (0.0-0.2). (20:06 [facility]) Chap[place]: AWAT=ADDISON Vazquez, Matt BPHI=ADDISON Martínez, Janet CJEF=ADDISON Morales, Shannon LLDO=MD Rommel, Talon &a-1R&a+25V*p+0X*m1628D*c202B*c15G*c2P*p-0X&a-25V&a+1R Name: Ed Hernandez : 1970 M46 MedRec: [id number] AcctNum: [id number] Prepared: SunOct 27, 2016 02:06 by Interface Page 13 of 13 pMD MTDD
== END 2016-10-26 21:35 | disposition short-term general hospital (02) ==
LOC: MADERS 18:58
DX: K81.0 Acute cholecystitis (principal); Z87.891 Personal history of nicotine dependence
CPT/HCPCS: 71010; 80053; 81003; 81015; 82150; 83690; 85025; 87086; 96365; 96375; J0690; J1885; J2405; J7050